=== PATIENT | male | born 1985 | race Caucasian/White ===

== ENCOUNTER 2019-07-18 20:29 | Emergency (ER) | payer SELFPAY ==
[~2019-07-18] VITALS: Ht 170.2 cm; Wt 127.0 kg
[2019-07-18 20:44] VITALS: BP 149/84
[2019-07-18 21:07] VITALS: BP 149/84
== END 2019-07-18 21:05 | disposition home or self-care (01) ==
LOC: MED 20:29
DX: M79.602 Pain in left arm (principal); R20.0 Anesthesia of skin; E11.9 Type 2 diabetes mellitus without complications
CPT/HCPCS: 82948; 99282